=== PATIENT | male | born 1960 | race Caucasian/White ===

== ENCOUNTER 2018-07-31 16:00 | Outpatient (RCR) | payer BC ==
[~2018-07-31 16:00] MED LIST: CITALOPRAM10 MG PO; FLEXERIL PO; NAPROSYN500 MG PO
== END 2018-07-31 17:00 | disposition home or self-care (01) | DRG 552 ==
LOC: PT 16:00
PROVIDERS: ATTEND Neurological Surgery
DX: M47.12 Other spondylosis with myelopathy, cervical region (principal)

== ENCOUNTER 2019-11-26 06:18 | Day surgery (SDC) | payer BC ==
[~2019-11-26] VITALS: Ht 182.9 cm; Wt 60.3 kg
[~2019-11-26 06:18] MED LIST changes: +ACETAMIN500 M2 PO; +NORCO1 TA2 PO
[2019-11-26 08:27] VITALS: BP 156/87
[2019-11-26] MEDS ORDERED: NORCO1 TA2 PO (08:39)
[2019-12-24] MEDS ORDERED: LYRICA50 MG PO (12:36)
[2020-01-13] MEDS ORDERED: NORCO1 TA2 PO (15:01)
[2020-01-13] MEDS ORDERED: HYDROCODONE/ACE1 TAB PO ×2 (15:04→15:08)
[2020-02-26] MEDS ORDERED: HYDROCODONE/ACE1 TAB PO (12:14)
== END 2019-11-26 08:54 | disposition home or self-care (01) | DRG 552 ==
LOC: ORM 06:18
PROVIDERS: ATTEND Anesthesiology Pain Medicine
DX: M54.6 Pain in thoracic spine (principal); M51.36 Other intervertebral disc degeneration, lumbar region

== ENCOUNTER 2019-12-31 06:13 | Day surgery (SDC) | payer BC ==
[~2019-12-31] VITALS: Ht 182.9 cm; Wt 60.3 kg
[~2019-12-31 06:13] MED LIST changes: +LYRICA50 MG PO
[2019-12-31 07:42] VITALS: BP 170/80
[2020-01-13] MEDS ORDERED: NORCO1 TA2 PO (15:01)
[2020-01-13] MEDS ORDERED: HYDROCODONE/ACE1 TAB PO ×2 (15:04→15:08)
[2020-02-26] MEDS ORDERED: HYDROCODONE/ACE1 TAB PO (12:14)
== END 2019-12-31 08:00 | disposition home or self-care (01) | DRG 552 ==
LOC: ORM 06:13
PROVIDERS: ATTEND Anesthesiology Pain Medicine
DX: M54.6 Pain in thoracic spine (principal); Z01.84 Encounter for antibody response examination
CPT/HCPCS: Q9967

== ENCOUNTER 2021-02-23 06:18 | Day surgery (SDC) | payer MEDICARE ==
[~2021-02-23 06:18] MED LIST changes: +GABAPENTIN100 MG PO; +HYDROCODONE/ACE1 TAB PO; +LORTAB 1010 MG PO; +MEDDOSEPAK PO
[2021-02-23 09:01] VITALS: BP 163/89
== END 2021-02-28 09:12 | disposition home or self-care (01) ==
LOC: ORM 06:18
PROVIDERS: ATTEND Anesthesiology Pain Medicine
DX: M51.34 Other intervertebral disc degeneration, thoracic region (principal)

== ENCOUNTER 2021-03-30 06:13 | Day surgery (SDC) | payer MEDICARE ==
[~2021-03-30] VITALS: Ht 182.9 cm; Wt 57.2 kg
[2021-03-30] MEDS ORDERED: PREGABALIN75 MG PO (06:42)
[2021-03-30 09:17] VITALS: BP 141/75
== END 2021-03-31 08:53 | disposition home or self-care (01) ==
LOC: ORM 06:13
PROVIDERS: ATTEND Anesthesiology Pain Medicine
DX: M54.6 Pain in thoracic spine (principal); M51.34 Other intervertebral disc degeneration, thoracic region

== ENCOUNTER → 2021-04-13 | Day surgery (SDC) | payer MEDICARE ==
[~2021-04-13] MED LIST changes: +PREGABALIN75 MG PO
[2021-04-13 12:58] VITALS: BP 150/99
== END ==
LOC: ORM 06:27
PROVIDERS: ATTEND Anesthesiology Pain Medicine
DX: M50.33 Other cervical disc degeneration, cervicothoracic region (principal)

== ENCOUNTER 2021-10-19 07:40 | Day surgery (SDC) | payer MEDICARE ==
[~2021-10-19] VITALS: Ht 182.9 cm; Wt 65.3 kg
[2021-10-19] MEDS ORDERED: TIZANIDINE HCL2 MG PO (08:08)
[2021-10-19 10:33] VITALS: BP 132/74
== END 2021-10-19 09:50 | disposition home or self-care (01) ==
LOC: ORM 07:40
PROVIDERS: ATTEND Physical Medicine & Rehabilitation
DX: M62.838 Other muscle spasm (principal)

== ENCOUNTER → 2022-04-26 | Day surgery (SDC) | payer MEDICARE ==
[~2022-04-26] MED LIST changes: +TIZANIDINE HCL2 MG PO
== END | disposition home or self-care (01) ==
LOC: ORM 08:00
PROVIDERS: ATTEND Physical Medicine & Rehabilitation
DX: Z01.818 Encounter for other preprocedural examination (principal); M54.16 Radiculopathy, lumbar region

== ENCOUNTER 2022-05-31 07:34 | Day surgery (SDC) | payer MEDICARE ==
[~2022-05-31] VITALS: Ht 180.3 cm; Wt 57.2 kg
[2022-05-31 10:05] VITALS: BP 151/98
== END 2022-05-31 10:01 | disposition home or self-care (01) ==
LOC: ORM 07:34
PROVIDERS: ATTEND Physical Medicine & Rehabilitation Pain Medicine
DX: M54.16 Radiculopathy, lumbar region (principal)
CPT/HCPCS: J1100